=== PATIENT | female | born 1965 | race Caucasian/White ===

== ENCOUNTER 2023-07-14 17:53 | Observation (INO) | payer BC ==
[2023-07-14] MEDS ORDERED: DUONEB 0.5-3 MG/3 ml Neb IH ONE (18:01)
[2023-07-14] MEDS: DUONEB 0.5-3 MG/3 ml Neb IH ONE (18:14)
[2023-07-14] MEDS ORDERED: solu-MEDROL ONE (18:37)
[2023-07-14] MEDS ORDERED: Sodium Chloride 0.9% 1000 ML 1,000 ML ONE (18:37)
[2023-07-14] MEDS ORDERED: Sterile H2O 10 ml IJ ONE (18:37)
[2023-07-14] MEDS: solu-MEDROL 125 MG, Sterile H2O 10 ml 2 ML IV ONE (18:40)
[2023-07-14] MEDS: Sodium Chloride 0.9% 1000 ML 1,000 ML IV STA (18:41)
[2023-07-14 18:45] LABS: Absolute Neutrophil Ct (ANC) 2.49 x10^3/uL (1.4-6.9); BASOPHIL % 1.1 % (0.0-0.4); Basophil (Absolute #) 0.05 x10^3/uL (0-0.4); Eosinophil (Absolute #) 0.09 x10^3/uL (0-0.5); Hematocrit 40.9 % (35-47); Hemoglobin 13.2 g/dL (12.0-16.0); IMMATURE GRAN # 0.02 x10^3u/L (0.00-0.03); IMMATURE GRAN % 0.4 % (0.00-0.4); Lymphocyte (Absolute #) 1.65 x10^3/uL (1.0-4.6); Lymphocytes % 36.8 % (24.0-44.0); Mean Cell Volume 91.1 fL (78-100); Mean Corpuscular Hemoglobin 29.4 pg (26-32); Mean Corpuscular Hgb Concent. 32.3 g/dL (32-36); Mean Platelet Volume 11.7 fL (7.5-11.0); Monocyte (Absolute #) 0.18 x10^3/uL (0.0-1.3); Neutrophil % 55.7 % (36.0-66.0); Platelet Count 179 x10^3/uL (150-450); Red Blood Count 4.49 x10^6/uL (4.1-5.4); Red Cell Distribution Width 13.7 % (11.5-14.0); White Blood Count 4.5 x10^3/uL (4.0-10.5)
[2023-07-14] MEDS ORDERED: PROVENTIL 2.5 MG/3 ML NEB IH ONE (18:45)
[2023-07-14] MEDS: PROVENTIL 2.5 MG/3 ML NEB IH ONE (18:47)
[2023-07-14 18:54] LABS: INFLUENZA A NEGATIVE (NEGATIVE); INFLUENZA B NEGATIVE (NEGATIVE); RESPIRATORY SYNCTIAL VIRUS NEGATIVE (NEGATIVE); SARS-CoV-2 Xpert Express NEGATIVE (NEGATIVE)
--- NOTE | 2023-07-14 18:59 | ERPHSYRPT ---
- History of Present Illness Source: patient Exam Limitations: no limitations Patient Subjective Stated Complaint: asthma attack Triage Nursing Assessment: Pt brought to the ER by her sister in law, hypertensive, tachycardic, tachypnic, hypoxic, pt denies pain, pulses normal, skin n/w/d, had an attack last night and today, walked into the ER and was very short of breath, denies chest pain Hx Tetanus, Diphtheria Vaccination/Date Given: Yes Hx Influenza Vaccination/Date Given: Yes Hx Pneumococcal Vaccination/Date Given: No <GIDEON GAN - Last Filed: 07/14/23 19:03> <BRONWYN NUÑEZ - Last Filed: 07/14/23 23:09> - History of Present Illness Time Seen by Provider: 07/14/23 17:55 Physician History: Patient here with asthma exacerbation. Has been going on and off since April. Multiple rounds of steroids and antibiotics. No falls or trauma. Comes in speaking in 1-3 word sentences. Patient is 90% SpO2 on the monitor on room air. Immediately placed on 4 L of oxygen. No chest pain, falls, other symptoms today. (GIDEON GAN) Allergies/Adverse Reactions: codeine Allergy (Verified 07/14/23 18:15) Home Medications: Escitalopram Oxalate [Lexapro 10 MG] 10 mg PO DAILY 02/26/20 [History] Levothyroxine Sodium 75 Mcg [Synthroid 75 Mcg] 75 mcg PO DAILY 02/26/20 [History] Venlafaxine HCl ER 75 mg [Effexor XR 75 MG] 75 mg PO DAILY 07/14/23 [History] Travel Risk - International Travel Have you traveled outside of the country in past 3 weeks: No - Coronavirus Screening Are you exhibiting any of the following symptoms?: No Close contact with a COVID-19 positive Pt in past 14-21 Days: No - Vaccine Status Have you recieved a Covid-19 vaccination: Yes Janitorial Services Supervisor: Moderna - Vaccination Dates Date of 2cond Vaccination (if applicable): 2020 <GIDEON GAN - Last Filed: 07/14/23 19:03> - Past Medical History Pertinent Past Medical History: Yes Cardiac History: Arrhythmia - Past Surgical History Past Surgical History: Yes Gastrointestinal: Cholecystectomy - Social History Smoking Status: Never smoker Exposure to second hand smoke: No Drug Use: none Patient Lives Alone: No <GIDEON GAN - Last Filed: 07/14/23 19:03> - Physical Exam SpO2 Interpretation: normal SpO2: 94 <GIDEON GAN - Last Filed: 07/14/23 19:03> - Nursing Vital Signs Nursing Vital Signs: Initial Vital Signs Temperature 98.8 F 07/14/23 17:55 Pulse Rate 129 H 07/14/23 17:55 Respiratory Rate 33 H 07/14/23 17:55 Blood Pressure 156/122 07/14/23 17:55 O2 Sat by Pulse Oximetry 85 L 07/14/23 17:55 Pain Scale Pain Intensity 0 - Physical Exam Comments: 07/14/23 19:04 Review of Systems Constitutional: Negative for fever. HENT: Negative for congestion. Respiratory: Wheezing, shortness of breath, appears uncomfortable Cardiovascular: Negative for chest pain. Gastrointestinal: Negative for abdominal pain. Genitourinary: Negative for dysuria. Musculoskeletal: Negative for back pain. Skin: Negative for rash. Neurological: Negative for headaches. Psychiatric/Behavioral: Negative for behavioral problems. All other systems reviewed and are negative. Physical Exam Vitals signs and nursing note reviewed. Constitutional: Appearance: Patient is well-developed. HENT: Head: Normocephalic and atraumatic. Eyes: Conjunctiva/sclera: Conjunctivae normal. Neck: Musculoskeletal: Normal range of motion. Trachea: No tracheal deviation. Cardiovascular: Rate and Rhythm: Normal rate. Pulmonary: Effort: Wheezing, tachypnea, retractions Abdominal: Palpations: Abdomen is soft. Musculoskeletal: General: No deformity. Skin: General: Skin is warm and dry. Neurological/ Psychiatric: Mental Status: Mental status, behavior, interaction with environment is appropriate for patient's age and condition (GIDEON GAN) - Course Nursing assessment & vital signs reviewed: Yes EKG Interpreted by Me: Sinus Rhythm (Normal sinus rhythm no ST changes) <GIDEON GAN - Last Filed: 07/14/23 19:03> Ordered Tests: Active Orders 24 hr Category Date Time Status Concrete Vibrator Operator STAT Care 07/14/23 17:56 Active EKG-ER Only STAT Care 07/14/23 17:55 Active IV Insertion STAT Care 07/14/23 17:55 Active Oxygen-ED Only Nasal Cannula 4 lpm Care 07/14/23 17:55 Active CHEST 1 VIEW (PORTABLE) Stat Exams 07/14/23 17:55 Taken CHEST WITH CONTRAST [CT] Stat Exams 07/14/23 19:09 Taken CBC W DIFF Stat Lab 07/14/23 17:55 Completed CMP Stat Lab 07/14/23 18:40 Completed CULTURE,SPUTUM Stat Lab 07/14/23 17:55 Ordered D-DIMER QUANTITATIVE Stat Lab 07/14/23 18:40 Completed NT PRO BNPII Stat Lab 07/14/23 18:40 Completed TROPONIN Q4H Lab 07/14/23 18:40 Completed TROPONIN Q4H Lab 07/14/23 21:35 Completed TROPONIN Q4H Lab 07/15/23 02:00 Ordered Respiratory Therapy Assessment DAILY RT 07/14/23 18:10 Active Medication Summary Discontinued Medications Generic Name Dose Route Start Last Admin Trade Name Freq PRN Reason Stop Dose Admin Albuterol Sulfate 2.5 mg 07/14/23 18:22 07/14/23 18:47 Albuterol Sulfate 2.5 Mg/3 Ml Neb IH 07/14/23 18:23 2.5 mg STAT ONE Administration Albuterol Sulfate Confirm 07/14/23 18:45 Albuterol Sulfate 2.5 Mg/3 Ml Neb Administered 07/14/23 18:46 Dose 2.5 mg IH .STK-MED ONE Albuterol/Ipratropium 3 ml 07/14/23 17:55 07/14/23 18:14 Ipratropium/Albuterol Sulfate 3 Ml Ampul.Neb IH 07/14/23 17:56 3 ml STAT ONE Administration Albuterol/Ipratropium Confirm 07/14/23 18:01 Ipratropium/Albuterol Sulfate 3 Ml Ampul.Neb Administered 07/14/23 18:02 Dose 3 ml IH .STK-MED ONE Methylprednisolone Sodium 0 mg 07/14/23 17:55 07/14/23 18:40 Succinate 125 mg/ Sterile IV 07/14/23 17:56 125 mg Water 2 ml STAT ONE Administration Furosemide 40 mg 07/14/23 21:10 07/14/23 21:33 Furosemide 40 Mg/4 Ml Vial IV 07/14/23 21:11 40 mg STAT ONE Administration Furosemide Confirm 07/14/23 21:18 Furosemide 40 Mg/4 Ml Vial Administered 07/14/23 21:19 Dose 40 mg .ROUTE .STK-MED ONE Sodium Chloride 1,000 mls @ 999 mls/hr 07/14/23 17:55 07/14/23 19:59 Sodium Chloride 0.9% 1000 Ml IV 07/14/23 18:55 Infused .Q1H1M STA Infusion Sodium Chloride Confirm 07/14/23 18:37 Sodium Chloride 0.9% 1000 Ml Administered 07/14/23 18:38 Dose 1,000 mls @ ud .ROUTE .STK-MED ONE Methylprednisolone Sodium Succinate Confirm 07/14/23 18:37 Methylprednis Sod Succ 125 Mg/2 Ml Vial Administered 07/14/23 18:38 Dose 125 mg .ROUTE .STK-MED ONE Sterile Water Confirm 07/14/23 18:37 Water For Injection,Sterile 10 Ml Vial Administered 07/14/23 18:38 Dose 10 ml IJ .STK-MED ONE Lab/Rad Data: Laboratory Result Diagrams 07/14/23 17:55 07/14/23 18:40 Laboratory Results 07/14/23 07/14/23 07/14/23 Range/Units 21:35 18:40 18:40 WBC (4.0-10.5) x10^3/uL RBC (4.1-5.4) x10^6/uL Hgb (12.0-16.0) g/dL Hct (35-47) % MCV (78-100) fL MCH (26-32) pg MCHC (32-36) g/dL RDW (11.5-14.0) % Plt Count (150-450) x10^3/uL MPV (7.5-11.0) fL Gran % (36.0-66.0) % Immature Gran % (Auto) (0.00-0.4) % Nucleat RBC Rel Count (0.00-0.1) % Eos # (Auto) (0-0.5) x10^3/uL Immature Gran # (Auto) (0.00-0.03) x10^3u/L Absolute Lymphs (auto) (1.0-4.6) x10^3/uL Absolute Monos (auto) (0.0-1.3) x10^3/uL Absolute Nucleated RBC (0.00-0.01) x10^3u/L Lymphocytes % (24.0-44.0) % Monocytes % (0.0-12.0) % Eosinophils % (0.00-5.0) % Basophils % (0.0-0.4) % Absolute Granulocytes (1.4-6.9) x10^3/uL Basophils # (0-0.4) x10^3/uL D-Dimer (0.0-0.50) mg/L Sodium (135-145) mmol/L Potassium (3.5-5.1) mmol/L Chloride (98-107) mmol/L Carbon Dioxide (22-30) mmol/L Anion Gap (5-15) MEQ/L BUN (7-17) mg/dL Creatinine (0.52-1.04) mg/dL Estimated GFR ML/MIN Glucose (74-106) mg/dL Calcium (8.4-10.2) mg/dL Total Bilirubin (0.2-1.3) mg/dL AST (14-36) U/L ALT (0-35) U/L Alkaline Phosphatase (38-126) U/L Troponin I 0.012 0.021 (0.000-0.034) ng/mL NT-Pro-B Natriuret Pep 2010 (<300) pg/mL Serum Total Protein (6.3-8.2) g/dL Albumin (3.5-5.0) g/dL Influenza Type A Ag (NEGATIVE) Influenza Type B Ag (NEGATIVE) RSV (PCR) (NEGATIVE) SARS-CoV-2 (PCR) (NEGATIVE) 07/14/23 07/14/23 07/14/23 Range/Units 18:40 18:40 18:10 WBC (4.0-10.5) x10^3/uL RBC (4.1-5.4) x10^6/uL Hgb (12.0-16.0) g/dL Hct (35-47) % MCV (78-100) fL MCH (26-32) pg MCHC (32-36) g/dL RDW (11.5-14.0) % Plt Count (150-450) x10^3/uL MPV (7.5-11.0) fL Gran % (36.0-66.0) % Immature Gran % (Auto) (0.00-0.4) % Nucleat RBC Rel Count (0.00-0.1) % Eos # (Auto) (0-0.5) x10^3/uL Immature Gran # (Auto) (0.00-0.03) x10^3u/L Absolute Lymphs (auto) (1.0-4.6) x10^3/uL Absolute Monos (auto) (0.0-1.3) x10^3/uL Absolute Nucleated RBC (0.00-0.01) x10^3u/L Lymphocytes % (24.0-44.0) % Monocytes % (0.0-12.0) % Eosinophils % (0.00-5.0) % Basophils % (0.0-0.4) % Absolute Granulocytes (1.4-6.9) x10^3/uL Basophils # (0-0.4) x10^3/uL D-Dimer 1.50 H* (0.0-0.50) mg/L Sodium 141 (135-145) mmol/L Potassium 4.0 (3.5-5.1) mmol/L Chloride 111 H (98-107) mmol/L Carbon Dioxide 21 L (22-30) mmol/L Anion Gap 13.2 (5-15) MEQ/L BUN 17 (7-17) mg/dL Creatinine 1.33 H (0.52-1.04) mg/dL Estimated GFR 47.0 ML/MIN Glucose 109 H (74-106) mg/dL Calcium 8.9 (8.4-10.2) mg/dL Total Bilirubin 0.40 (0.2-1.3) mg/dL AST 45 H (14-36) U/L ALT 75 H (0-35) U/L Alkaline Phosphatase 72 (38-126) U/L Troponin I (0.000-0.034) ng/mL NT-Pro-B Natriuret Pep (<300) pg/mL Serum Total Protein 6.9 (6.3-8.2) g/dL Albumin 4.0 (3.5-5.0) g/dL Influenza Type A Ag NEGATIVE (NEGATIVE) Influenza Type B Ag NEGATIVE (NEGATIVE) RSV (PCR) NEGATIVE (NEGATIVE) SARS-CoV-2 (PCR) NEGATIVE (NEGATIVE) 07/14/23 Range/Units 17:55 WBC 4.5 (4.0-10.5) x10^3/uL RBC 4.49 (4.1-5.4) x10^6/uL Hgb 13.2 (12.0-16.0) g/dL Hct 40.9 (35-47) % MCV 91.1 (78-100) fL MCH 29.4 (26-32) pg MCHC 32.3 (32-36) g/dL RDW 13.7 (11.5-14.0) % Plt Count 179 (150-450) x10^3/uL MPV 11.7 H (7.5-11.0) fL Gran % 55.7 (36.0-66.0) % Immature Gran % (Auto) 0.4 (0.00-0.4) % Nucleat RBC Rel Count 0.0 (0.00-0.1) % Eos # (Auto) 0.09 (0-0.5) x10^3/uL Immature Gran # (Auto) 0.02 (0.00-0.03) x10^3u/L Absolute Lymphs (auto) 1.65 (1.0-4.6) x10^3/uL Absolute Monos (auto) 0.18 (0.0-1.3) x10^3/uL Absolute Nucleated RBC 0.00 (0.00-0.01) x10^3u/L Lymphocytes % 36.8 (24.0-44.0) % Monocytes % 4.0 (0.0-12.0) % Eosinophils % 2.0 (0.00-5.0) % Basophils % 1.1 (0.0-0.4) % Absolute Granulocytes 2.49 (1.4-6.9) x10^3/uL Basophils # 0.05 (0-0.4) x10^3/uL D-Dimer (0.0-0.50) mg/L Sodium (135-145) mmol/L Potassium (3.5-5.1) mmol/L Chloride (98-107) mmol/L Carbon Dioxide (22-30) mmol/L Anion Gap (5-15) MEQ/L BUN (7-17) mg/dL Creatinine (0.52-1.04) mg/dL Estimated GFR ML/MIN Glucose (74-106) mg/dL Calcium (8.4-10.2) mg/dL Total Bilirubin (0.2-1.3) mg/dL AST (14-36) U/L ALT (0-35) U/L Alkaline Phosphatase (38-126) U/L Troponin I (0.000-0.034) ng/mL NT-Pro-B Natriuret Pep (<300) pg/mL Serum Total Protein (6.3-8.2) g/dL Albumin (3.5-5.0) g/dL Influenza Type A Ag (NEGATIVE) Influenza Type B Ag (NEGATIVE) RSV (PCR) (NEGATIVE) SARS-CoV-2 (PCR) (NEGATIVE) - Progress Progress: improved Counseled pt/family regarding: lab results, diagnosis, need for follow-up, rad results <GIDEON GAN - Last Filed: 07/14/23 19:03> <BRONWYN NUÑEZ - Last Filed: 07/14/23 23:09> - Progress Progress Note: 07/14/23 19:04 Parental diagnosis includes pneumonia, other infection, asthma exacerbation, cardiac issue, - We'll obtain basic labs, fluids, EKG, troponin, chest x-ray - EKG shows no ST changes - my read - O2 saturations consistently greater than 95% on 2 L Patient given 2 rounds of albuterol here in the emergency department, patient given steroids, plan for continued close observation. Handoff to Dr. Nuñez at 7 PM. He will follow-up on all labs and imaging. Disposition per his reexam needs imaging. (GIDEON GAN) 07/14/23 21:10 I interpreted this patient's laboratory data results. Patient had an elevated D-dimer and therefore we ordered a CT of the chest with contrast. This study w as interpreted by the radiologist and I reviewed the impression. There is no evidence for pulmonary embolism. However there is new borderline cardiomegaly with pulmonary edema. There is tiny bilateral effusions present. Favoring mild CHF. New small hiatal hernia 07/14/23 22:11 I interpreted the repeat twelve-lead EKG. The repeat heart rate is 117 bpm it is sinus tachycardia. There is a left bundle branch block present. There is no evidence of any acute ischemic changes on the repeat twelve-lead EKG. The patient does not have chest pain. Her repeat troponin level is normal. It is improved from her prior normal troponin level. We will stop the oxygen supplementation and walk the patient to determine what her room air oxygen saturation level is. Patient and spouse were told of the results of the CT scan and the clinical impression. She, if discharged home, will contact her primary care provider and follow-up with the job analysis manager as well. 07/14/23 23:[address] Valdovinos, our telehospitalist on this evening. I reviewed the patient history, chief complaint presenting complaint, findings on examination, results of laboratory and radiographic studies as well as twelve-lead EKG results. The patient continues to be hypoxic and tachycardic even without activity. With activity her heart rate increases and she becomes more hypoxic. We will place her in observation. Dr. Valdovinos agrees to this. He will order more testing for the morning. (BRONWYN NUÑEZ) Medical Desision Making - Independent Historian Additional History obtained from: Spouse - Diagnostic Testing Diagnostic test were ordered, analyzed, and reviewed by me: Yes Radiological Interpretation: Reviewed by me, Teleradiologist Report - Risk of complications The pt has a high risk of morbidity or mortality based on: Decision regarding hospitilization or escalation of hosp level of care <BRONWYN NUÑEZ - Last Filed: 07/14/23 23:09> - Departure Critical Care Time: No <GIDEON GAN - Last Filed: 07/14/23 19:03> - Departure Departure Disposition: Observation Critical Care Time: Yes Critical Care Time(excluding separately billable procedures): Critical 30-74 mins (45 minutes) <BRONWYN NUÑEZ - Last Filed: 07/14/23 23:09> - Departure Clinical Impression: Congestive heart failure, Hypoxia, Tachycardia Condition: Fair Referrals: FRANCOIS LYONS [Primary Care Provider] - Follow up/PCP as directed Instructions: Heart Failure
[2023-07-14 19:00] LABS: ANION GAP 13.2 MEQ/L (5-15); BILIRUBIN,TOTAL 0.4 mg/dL (0.2-1.3); Calcium 8.9 mg/dL (8.4-10.2); Creatinine 1 1.33 mg/dL (0.52-1.04); Total Protein 6.9 g/dL (6.3-8.2)
[2023-07-14] MEDS ORDERED: Lasix 40 MG/4 ML ONE (21:18)
[2023-07-14] MEDS: Lasix 40 MG/4 ML IV ONE (21:33)
--- NOTE | 2023-07-14 23:28 | PCM.HP ---
History of Present Illness - Chief Complaint Chief Complaint: shortness of breath, hyoxia, concern for CHF History of Present Illness: is a 58 year old female who presents with shortness of breath and hypoxic respiratory failure, with clinical picture concerning for new onset CHF vs asthma. Pt denies acute chest pain, recent illness but has had progressive dyspnea at rest and with exertion. Given lasix in the ED with improvement in symptoms but remained hypoxic on room air when walking (88%) - and improved on nasal canula. No prior TTEs. No leg swelling. Has a history of situational asthma. Was given lasix, steroids in the ED and had improvement in her symptoms and back in room air by the time on the floor. - Review of Systems Constitutional: No Fever, No Chills Eyes: No Symptoms Ears, Nose, & Throat: No Symptoms Respiratory: No Cough, No Short Of Breath Cardiac: No Chest Pain, No Edema, No Syncope Abdominal/Gastrointestinal: No Abdominal Pain, No Nausea, No Vomiting, No Diarrhea Genitourinary Symptoms: No Dysuria Musculoskeletal: No Back Pain, No Neck Pain Skin: No Rash Neurological: No Dizziness, No Focal Weakness, No Sensory Changes Psychological: No Symptoms Endocrine: No Symptoms Hematologic/Lymphatic: No Symptoms Immunological/Allergic: No Symptoms Medications & Allergies Home Medications: Home Medication List Escitalopram Oxalate [Lexapro 10 MG] 10 mg PO DAILY 02/26/20 [History Confirmed 07/14/23] Levothyroxine Sodium 75 Mcg [Synthroid 75 Mcg] 75 mcg PO DAILY 02/26/20 [History Confirmed 07/14/23] Venlafaxine HCl ER 75 mg [Effexor XR 75 MG] 75 mg PO DAILY 07/14/23 [History Confirmed 07/14/23] Allergies/Adverse Reactions: Allergies Allergy/AdvReac Type Severity Reaction Status Date / Time codeine Allergy Verified 07/14/23 18:15 - Past Medical History Past Medical History: Yes Cardiac History: Arrhythmia - Past Surgical History Past Surgical History: Yes GI Surgical History: Cholecystectomy - Social History Smoking Status: Never smoker Exposure to second hand smoke: No Alcohol: None Drug Use: none - Physical Exam Vital Signs: Vital Signs - 24 hr Temp Pulse Resp BP BP Pulse Ox 07/14/23 22:39 119 H 16 138/87 95 07/14/23 22:30 124 H 15 118/85 94 L 07/14/23 22:12 115 H 22 123/91 95 07/14/23 22:11 115 H 29 H 96 07/14/23 22:10 117 H 21 95 07/14/23 22:03 126 H 11 L 98 07/14/23 21:30 122 H 21 124/85 97 07/14/23 21:01 126/69 94 L 07/14/23 20:20 119 H 18 94 L 07/14/23 20:02 123 H 24 93 L 07/14/23 19:30 121 H 23 152/96 95 07/14/23 19:06 94 L 07/14/23 19:02 121 H 20 128/104 94 L 07/14/23 18:50 125 H 28 H 94 L 07/14/23 18:30 123 H 22 144/115 94 L 07/14/23 18:10 125 H 23 97 07/14/23 18:00 124 H 26 H 156/122 93 L 07/14/23 17:55 98.8 F 129 H 30 H 156/122 95 General Appearance: no apparent distress, alert Neurologic Exam: alert, oriented x 3, cooperative, normal mood/affect, nml cerebellar function, nml station & gait, sensation nml, No motor deficits Eye Exam: PERRL/EOMI, eyes nml inspection Ears, Nose, Throat Exam: normal ENT inspection, TMs normal, pharynx normal, moist mucous membranes Neck Exam: normal inspection, non-tender, supple, full range of motion Respiratory Exam: normal breath sounds, lungs clear, No respiratory distress Cardiovascular Exam: regular rate/rhythm, normal heart sounds, normal peripheral pulses Gastrointestinal/Abdomen Exam: soft, normal bowel sounds, No tenderness, No mass Back Exam: normal inspection, normal range of motion, No CVA tenderness, No vertebral tenderness Extremity Exam: normal inspection, normal range of motion, pelvis stable Skin Exam: normal color, warm, dry, No rash Lymphatic Exam: No adenopathy Results - Labs Lab/Micro Results: Lab Results-Last 24 Hours 07/14/23 07/14/23 07/14/23 Range/Units 17:55 18:10 18:40 WBC 4.5 (4.0-10.5) x10^3/uL RBC 4.49 (4.1-5.4) x10^6/uL Hgb 13.2 (12.0-16.0) g/dL Hct 40.9 (35-47) % MCV 91.1 (78-100) fL MCH 29.4 (26-32) pg MCHC 32.3 (32-36) g/dL RDW 13.7 (11.5-14.0) % Plt Count 179 (150-450) x10^3/uL MPV 11.7 H (7.5-11.0) fL Gran % 55.7 (36.0-66.0) % Immature Gran % (Auto) 0.4 (0.00-0.4) % Nucleat RBC Rel Count 0.0 (0.00-0.1) % Eos # (Auto) 0.09 (0-0.5) x10^3/uL Immature Gran # (Auto) 0.02 (0.00-0.03) x10^3u/L Absolute Lymphs (auto) 1.65 (1.0-4.6) x10^3/uL Absolute Monos (auto) 0.18 (0.0-1.3) x10^3/uL Absolute Nucleated RBC 0.00 (0.00-0.01) x10^3u/L Lymphocytes % 36.8 (24.0-44.0) % Monocytes % 4.0 (0.0-12.0) % Eosinophils % 2.0 (0.00-5.0) % Basophils % 1.1 (0.0-0.4) % Absolute Granulocytes 2.49 (1.4-6.9) x10^3/uL Basophils # 0.05 (0-0.4) x10^3/uL D-Dimer (0.0-0.50) mg/L Sodium 141 (135-145) mmol/L Potassium 4.0 (3.5-5.1) mmol/L Chloride 111 H (98-107) mmol/L Carbon Dioxide 21 L (22-30) mmol/L Anion Gap 13.2 (5-15) MEQ/L BUN 17 (7-17) mg/dL Creatinine 1.33 H (0.52-1.04) mg/dL Estimated GFR 47.0 ML/MIN Glucose 109 H (74-106) mg/dL Calcium 8.9 (8.4-10.2) mg/dL Total Bilirubin 0.40 (0.2-1.3) mg/dL AST 45 H (14-36) U/L ALT 75 H (0-35) U/L Alkaline Phosphatase 72 (38-126) U/L Troponin I (0.000-0.034) ng/mL NT-Pro-B Natriuret Pep (<300) pg/mL Serum Total Protein 6.9 (6.3-8.2) g/dL Albumin 4.0 (3.5-5.0) g/dL Influenza Type A Ag NEGATIVE (NEGATIVE) Influenza Type B Ag NEGATIVE (NEGATIVE) RSV (PCR) NEGATIVE (NEGATIVE) SARS-CoV-2 (PCR) NEGATIVE (NEGATIVE) 07/14/23 07/14/23 07/14/23 Range/Units 18:40 18:40 18:40 WBC (4.0-10.5) x10^3/uL RBC (4.1-5.4) x10^6/uL Hgb (12.0-16.0) g/dL Hct (35-47) % MCV (78-100) fL MCH (26-32) pg MCHC (32-36) g/dL RDW (11.5-14.0) % Plt Count (150-450) x10^3/uL MPV (7.5-11.0) fL Gran % (36.0-66.0) % Immature Gran % (Auto) (0.00-0.4) % Nucleat RBC Rel Count (0.00-0.1) % Eos # (Auto) (0-0.5) x10^3/uL Immature Gran # (Auto) (0.00-0.03) x10^3u/L Absolute Lymphs (auto) (1.0-4.6) x10^3/uL Absolute Monos (auto) (0.0-1.3) x10^3/uL Absolute Nucleated RBC (0.00-0.01) x10^3u/L Lymphocytes % (24.0-44.0) % Monocytes % (0.0-12.0) % Eosinophils % (0.00-5.0) % Basophils % (0.0-0.4) % Absolute Granulocytes (1.4-6.9) x10^3/uL Basophils # (0-0.4) x10^3/uL D-Dimer 1.50 H* (0.0-0.50) mg/L Sodium (135-145) mmol/L Potassium (3.5-5.1) mmol/L Chloride (98-107) mmol/L Carbon Dioxide (22-30) mmol/L Anion Gap (5-15) MEQ/L BUN (7-17) mg/dL Creatinine (0.52-1.04) mg/dL Estimated GFR ML/MIN Glucose (74-106) mg/dL Calcium (8.4-10.2) mg/dL Total Bilirubin (0.2-1.3) mg/dL AST (14-36) U/L ALT (0-35) U/L Alkaline Phosphatase (38-126) U/L Troponin I 0.021 (0.000-0.034) ng/mL NT-Pro-B Natriuret Pep 2010 (<300) pg/mL Serum Total Protein (6.3-8.2) g/dL Albumin (3.5-5.0) g/dL Influenza Type A Ag (NEGATIVE) Influenza Type B Ag (NEGATIVE) RSV (PCR) (NEGATIVE) SARS-CoV-2 (PCR) (NEGATIVE) 07/14/23 Range/Units 21:35 WBC (4.0-10.5) x10^3/uL RBC (4.1-5.4) x10^6/uL Hgb (12.0-16.0) g/dL Hct (35-47) % MCV (78-100) fL MCH (26-32) pg MCHC (32-36) g/dL RDW (11.5-14.0) % Plt Count (150-450) x10^3/uL MPV (7.5-11.0) fL Gran % (36.0-66.0) % Immature Gran % (Auto) (0.00-0.4) % Nucleat RBC Rel Count (0.00-0.1) % Eos # (Auto) (0-0.5) x10^3/uL Immature Gran # (Auto) (0.00-0.03) x10^3u/L Absolute Lymphs (auto) (1.0-4.6) x10^3/uL Absolute Monos (auto) (0.0-1.3) x10^3/uL Absolute Nucleated RBC (0.00-0.01) x10^3u/L Lymphocytes % (24.0-44.0) % Monocytes % (0.0-12.0) % Eosinophils % (0.00-5.0) % Basophils % (0.0-0.4) % Absolute Granulocytes (1.4-6.9) x10^3/uL Basophils # (0-0.4) x10^3/uL D-Dimer (0.0-0.50) mg/L Sodium (135-145) mmol/L Potassium (3.5-5.1) mmol/L Chloride (98-107) mmol/L Carbon Dioxide (22-30) mmol/L Anion Gap (5-15) MEQ/L BUN (7-17) mg/dL Creatinine (0.52-1.04) mg/dL Estimated GFR ML/MIN Glucose (74-106) mg/dL Calcium (8.4-10.2) mg/dL Total Bilirubin (0.2-1.3) mg/dL AST (14-36) U/L ALT (0-35) U/L Alkaline Phosphatase (38-126) U/L Troponin I 0.012 (0.000-0.034) ng/mL NT-Pro-B Natriuret Pep (<300) pg/mL Serum Total Protein (6.3-8.2) g/dL Albumin (3.5-5.0) g/dL Influenza Type A Ag (NEGATIVE) Influenza Type B Ag (NEGATIVE) RSV (PCR) (NEGATIVE) SARS-CoV-2 (PCR) (NEGATIVE) - Radiology Impressions Radiology Exams & Impressions: Radiology Procedures Category Date Time Status CHEST 1 VIEW (PORTABLE) Stat Exams 07/14/23 17:55 Taken CHEST WITH CONTRAST [CT] Stat Exams 07/14/23 19:09 Taken - Other Procedures and Tests Respiratory Therapy 07/14/23 18:10 Respiratory Therapy Assessment DAILY Assessment/Plan (1) Hypoxia Current Visit: Yes Status: Acute Assessment & Plan: Could be related to asthma vs new onset CHF 1. Obtain TTE 2. Improved symptoms with lasix, steroids. Hold for now, resume lasix in the AM if needed. Code(s): R09.02 - HYPOXEMIA Telemedicine Encounter - Telemedicine Encounter Telemedicine Encounter: The entirety of this encounter was performed via Telemedicine"
[2023-07-15] MEDS ORDERED: Zofran 4 MG/2 ML VIAL IV PRN
[2023-07-15] MEDS: Sodium Chloride 0.9% 1000 ML 1,000 ML IV SCH (01:38)
[2023-07-15] MEDS: PROVENTIL 2.5 MG/3 ML NEB IH PRN (02:17)
[2023-07-15 04:56] LABS: Absolute Neutrophil Ct (ANC) 4.54 x10^3/uL (1.4-6.9); Basophil (Absolute #) 0 x10^3/uL (0-0.4); Eosinophil (Absolute #) 0 x10^3/uL (0-0.5); Hematocrit 37.6 % (35-47); Hemoglobin 12.3 g/dL (12.0-16.0); IMMATURE GRAN # 0.02 x10^3u/L (0.00-0.03); IMMATURE GRAN % 0.4 % (0.00-0.4); Lymphocyte (Absolute #) 0.36 x10^3/uL (1.0-4.6); Lymphocytes % 7.2 % (24.0-44.0); Mean Cell Volume 89.3 fL (78-100); Mean Corpuscular Hemoglobin 29.2 pg (26-32); Mean Corpuscular Hgb Concent. 32.7 g/dL (32-36); Mean Platelet Volume 12.1 fL (7.5-11.0); Monocyte (Absolute #) 0.07 x10^3/uL (0.0-1.3); Monocytes % 1.4 % (0.0-12.0); Platelet Count 177 x10^3/uL (150-450); Red Blood Count 4.21 x10^6/uL (4.1-5.4); Red Cell Distribution Width 13.7 % (11.5-14.0)
--- NOTE | 2023-07-15 05:17 | PCM.NOTE ---
Date and Time: 07/15/23 0510 Subjective Assessment: is a 58 year old female who presented to ED 07/14/23 with shortness of breath and hypoxic respiratory failure, with clinical picture concerning for new onset CHF vs asthma. Pt denies acute chest pain, recent illness but has had progressive dyspnea at rest and with exertion. Given lasix in the ED with improvement in symptoms but remained hypoxic on room air when walking (88%) - and improved on nasal canula. No prior TTEs. No leg swelling. CT chest with no evidence for pulmonary embolism. However there is new borderline cardiomegaly with pulmonary edema. There is tiny bilateral effusions present. Favoring mild CHF. New small hiatal hernia. 07/15/23: Met with patient bedside.Endorses shortness of breath is improved, now on RA. Patient euvolemic. Discussed case with Dr. Joe Cole (patient's counseling specialist) patient does have h/o pvc's for which she is asymptomatic and doesn't require tr eatment. Plan is to continue lasix and obtain echo. Will re-eval once results are finalized. Patient to follow up with [facility] as OP in two weeks following discharge. <KIERA JONES - Last Filed: 07/15/23 11:23> Date and Time: 07/15/232237 <DHRUV TIMMONS - Last Filed: 07/15/23 22:39> - Review of Systems Constitutional: No Symptoms Eyes: No Symptoms Ears, Nose, & Throat: No Symptoms Respiratory: No Symptoms Cardiac: No Symptoms Abdominal/Gastrointestinal: No Symptoms Genitourinary Symptoms: No Symptoms Musculoskeletal: No Symptoms Skin: No Symptoms Neurological: No Symptoms Psychological: No Symptoms Endocrine: No Symptoms Hematologic/Lymphatic: No Symptoms Immunological/Allergic: No Symptoms <KIERA JONES - Last Filed: 07/15/23 11:23> Objective Exam General Appearance: no apparent distress Neurologic Exam: alert, oriented x 3, cooperative Skin Exam: normal color Eye Exam: PERRL Ears, Nose, Throat Exam: normal ENT inspection Neck Exam: normal inspection Respiratory Exam: normal breath sounds, lungs clear Cardiovascular Exam: regular rate/rhythm, normal heart sounds Gastrointestinal/Abdomen Exam: soft, normal bowel sounds Extremity Exam: normal inspection Back Exam: normal inspection Pelvic Exam: deferred Rectal Exam: deferred <KIERA JONES - Last Filed: 07/15/23 11:23> Objective Data Vital Signs: Vital Signs - 24 hr Temp Pulse Resp BP BP Pulse Ox 07/15/23 02:18 108 H 22 94 L 07/15/23 01:01 114 H 20 96 07/15/23 00:25 98.0 F 119 H 22 117/59 95 07/15/23 00:00 95 07/14/23 23:00 114 H 20 122/87 97 07/14/23 22:39 119 H 16 138/87 95 07/14/23 22:30 124 H 15 118/85 94 L 07/14/23 22:12 115 H 22 123/91 95 07/14/23 22:11 115 H 29 H 96 07/14/23 22:10 117 H 21 95 07/14/23 22:03 126 H 11 L 98 07/14/23 21:30 122 H 21 124/85 97 07/14/23 21:01 126/69 94 L 07/14/23 20:20 119 H 18 94 L 07/14/23 20:02 123 H 24 93 L 07/14/23 19:30 121 H 23 152/96 95 07/14/23 19:06 94 L 07/14/23 19:02 121 H 20 128/104 94 L 07/14/23 18:50 125 H 28 H 94 L 07/14/23 18:30 123 H 22 144/115 94 L 07/14/23 18:10 125 H 23 97 07/14/23 18:00 124 H 26 H 156/122 93 L 07/14/23 17:55 98.8 F 129 H 30 H 156/122 95 Pain Assessment - Last Documented Pain Intensity 0 Intake and Output: Intake & Output 07/12/23 07/13/23 07/14/23 07/15/23 11:59 11:59 11:59 11:59 Output Total 400 Balance -400 Weight 78.9 kg Lab Results: Lab Results-Last 24 Hours 07/14/23 07/14/23 07/14/23 Range/Units 17:55 18:10 18:40 WBC 4.5 (4.0-10.5) x10^3/uL RBC 4.49 (4.1-5.4) x10^6/uL Hgb 13.2 (12.0-16.0) g/dL Hct 40.9 (35-47) % MCV 91.1 (78-100) fL MCH 29.4 (26-32) pg MCHC 32.3 (32-36) g/dL RDW 13.7 (11.5-14.0) % Plt Count 179 (150-450) x10^3/uL MPV 11.7 H (7.5-11.0) fL Gran % 55.7 (36.0-66.0) % Immature Gran % (Auto) 0.4 (0.00-0.4) % Nucleat RBC Rel Count 0.0 (0.00-0.1) % Eos # (Auto) 0.09 (0-0.5) x10^3/uL Immature Gran # (Auto) 0.02 (0.00-0.03) x10^3u/L Absolute Lymphs (auto) 1.65 (1.0-4.6) x10^3/uL Absolute Monos (auto) 0.18 (0.0-1.3) x10^3/uL Absolute Nucleated RBC 0.00 (0.00-0.01) x10^3u/L Lymphocytes % 36.8 (24.0-44.0) % Monocytes % 4.0 (0.0-12.0) % Eosinophils % 2.0 (0.00-5.0) % Basophils % 1.1 (0.0-0.4) % Absolute Granulocytes 2.49 (1.4-6.9) x10^3/uL Basophils # 0.05 (0-0.4) x10^3/uL D-Dimer (0.0-0.50) mg/L Sodium 141 (135-145) mmol/L Potassium 4.0 (3.5-5.1) mmol/L Chloride 111 H (98-107) mmol/L Carbon Dioxide 21 L (22-30) mmol/L Anion Gap 13.2 (5-15) MEQ/L BUN 17 (7-17) mg/dL Creatinine 1.33 H (0.52-1.04) mg/dL Estimated GFR 47.0 ML/MIN Glucose 109 H (74-106) mg/dL Calcium 8.9 (8.4-10.2) mg/dL Total Bilirubin 0.40 (0.2-1.3) mg/dL AST 45 H (14-36) U/L ALT 75 H (0-35) U/L Alkaline Phosphatase 72 (38-126) U/L Troponin I (0.000-0.034) ng/mL NT-Pro-B Natriuret Pep (<300) pg/mL Serum Total Protein 6.9 (6.3-8.2) g/dL Albumin 4.0 (3.5-5.0) g/dL Free T4 (0.78-2.19) ng/dL TSH 3rd Generation (0.47-4.68) mIU/L Influenza Type A Ag NEGATIVE (NEGATIVE) Influenza Type B Ag NEGATIVE (NEGATIVE) RSV (PCR) NEGATIVE (NEGATIVE) SARS-CoV-2 (PCR) NEGATIVE (NEGATIVE) 07/14/23 07/14/23 07/14/23 Range/Units 18:40 18:40 18:40 WBC (4.0-10.5) x10^3/uL RBC (4.1-5.4) x10^6/uL Hgb (12.0-16.0) g/dL Hct (35-47) % MCV (78-100) fL MCH (26-32) pg MCHC (32-36) g/dL RDW (11.5-14.0) % Plt Count (150-450) x10^3/uL MPV (7.5-11.0) fL Gran % (36.0-66.0) % Immature Gran % (Auto) (0.00-0.4) % Nucleat RBC Rel Count (0.00-0.1) % Eos # (Auto) (0-0.5) x10^3/uL Immature Gran # (Auto) (0.00-0.03) x10^3u/L Absolute Lymphs (auto) (1.0-4.6) x10^3/uL Absolute Monos (auto) (0.0-1.3) x10^3/uL Absolute Nucleated RBC (0.00-0.01) x10^3u/L Lymphocytes % (24.0-44.0) % Monocytes % (0.0-12.0) % Eosinophils % (0.00-5.0) % Basophils % (0.0-0.4) % Absolute Granulocytes (1.4-6.9) x10^3/uL Basophils # (0-0.4) x10^3/uL D-Dimer 1.50 H* (0.0-0.50) mg/L Sodium (135-145) mmol/L Potassium (3.5-5.1) mmol/L Chloride (98-107) mmol/L Carbon Dioxide (22-30) mmol/L Anion Gap (5-15) MEQ/L BUN (7-17) mg/dL Creatinine (0.52-1.04) mg/dL Estimated GFR ML/MIN Glucose (74-106) mg/dL Calcium (8.4-10.2) mg/dL Total Bilirubin (0.2-1.3) mg/dL AST (14-36) U/L ALT (0-35) U/L Alkaline Phosphatase (38-126) U/L Troponin I 0.021 (0.000-0.034) ng/mL NT-Pro-B Natriuret Pep 2010 (<300) pg/mL Serum Total Protein (6.3-8.2) g/dL Albumin (3.5-5.0) g/dL Free T4 (0.78-2.19) ng/dL TSH 3rd Generation (0.47-4.68) mIU/L Influenza Type A Ag (NEGATIVE) Influenza Type B Ag (NEGATIVE) RSV (PCR) (NEGATIVE) SARS-CoV-2 (PCR) (NEGATIVE) 07/14/23 07/14/23 07/14/23 Range/Units 18:40 18:40 21:35 WBC (4.0-10.5) x10^3/uL RBC (4.1-5.4) x10^6/uL Hgb (12.0-16.0) g/dL Hct (35-47) % MCV (78-100) fL MCH (26-32) pg MCHC (32-36) g/dL RDW (11.5-14.0) % Plt Count (150-450) x10^3/uL MPV (7.5-11.0) fL Gran % (36.0-66.0) % Immature Gran % (Auto) (0.00-0.4) % Nucleat RBC Rel Count (0.00-0.1) % Eos # (Auto) (0-0.5) x10^3/uL Immature Gran # (Auto) (0.00-0.03) x10^3u/L Absolute Lymphs (auto) (1.0-4.6) x10^3/uL Absolute Monos (auto) (0.0-1.3) x10^3/uL Absolute Nucleated RBC (0.00-0.01) x10^3u/L Lymphocytes % (24.0-44.0) % Monocytes % (0.0-12.0) % Eosinophils % (0.00-5.0) % Basophils % (0.0-0.4) % Absolute Granulocytes (1.4-6.9) x10^3/uL Basophils # (0-0.4) x10^3/uL D-Dimer (0.0-0.50) mg/L Sodium (135-145) mmol/L Potassium (3.5-5.1) mmol/L Chloride (98-107) mmol/L Carbon Dioxide (22-30) mmol/L Anion Gap (5-15) MEQ/L BUN (7-17) mg/dL Creatinine (0.52-1.04) mg/dL Estimated GFR ML/MIN Glucose (74-106) mg/dL Calcium (8.4-10.2) mg/dL Total Bilirubin (0.2-1.3) mg/dL AST (14-36) U/L ALT (0-35) U/L Alkaline Phosphatase (38-126) U/L Troponin I 0.012 (0.000-0.034) ng/mL NT-Pro-B Natriuret Pep (<300) pg/mL Serum Total Protein (6.3-8.2) g/dL Albumin (3.5-5.0) g/dL Free T4 1.50 (0.78-2.19) ng/dL TSH 3rd Generation 0.214 L (0.47-4.68) mIU/L Influenza Type A Ag (NEGATIVE) Influenza Type B Ag (NEGATIVE) RSV (PCR) (NEGATIVE) SARS-CoV-2 (PCR) (NEGATIVE) 07/15/23 Range/Units 04:42 WBC 5.0 (4.0-10.5) x10^3/uL RBC 4.21 (4.1-5.4) x10^6/uL Hgb 12.3 (12.0-16.0) g/dL Hct 37.6 (35-47) % MCV 89.3 (78-100) fL MCH 29.2 (26-32) pg MCHC 32.7 (32-36) g/dL RDW 13.7 (11.5-14.0) % Plt Count 177 (150-450) x10^3/uL MPV 12.1 H (7.5-11.0) fL Gran % 91.0 H (36.0-66.0) % Immature Gran % (Auto) 0.4 (0.00-0.4) % Nucleat RBC Rel Count 0.0 (0.00-0.1) % Eos # (Auto) 0 (0-0.5) x10^3/uL Immature Gran # (Auto) 0.02 (0.00-0.03) x10^3u/L Absolute Lymphs (auto) 0.36 L (1.0-4.6) x10^3/uL Absolute Monos (auto) 0.07 (0.0-1.3) x10^3/uL Absolute Nucleated RBC 0.00 (0.00-0.01) x10^3u/L Lymphocytes % 7.2 L (24.0-44.0) % Monocytes % 1.4 (0.0-12.0) % Eosinophils % 0.0 (0.00-5.0) % Basophils % 0.0 (0.0-0.4) % Absolute Granulocytes 4.54 (1.4-6.9) x10^3/uL Basophils # 0 (0-0.4) x10^3/uL D-Dimer (0.0-0.50) mg/L Sodium (135-145) mmol/L Potassium (3.5-5.1) mmol/L Chloride (98-107) mmol/L Carbon Dioxide (22-30) mmol/L Anion Gap (5-15) MEQ/L BUN (7-17) mg/dL Creatinine (0.52-1.04) mg/dL Estimated GFR ML/MIN Glucose (74-106) mg/dL Calcium (8.4-10.2) mg/dL Total Bilirubin (0.2-1.3) mg/dL AST (14-36) U/L ALT (0-35) U/L Alkaline Phosphatase (38-126) U/L Troponin I (0.000-0.034) ng/mL NT-Pro-B Natriuret Pep (<300) pg/mL Serum Total Protein (6.3-8.2) g/dL Albumin (3.5-5.0) g/dL Free T4 (0.78-2.19) ng/dL TSH 3rd Generation (0.47-4.68) mIU/L Influenza Type A Ag (NEGATIVE) Influenza Type B Ag (NEGATIVE) RSV (PCR) (NEGATIVE) SARS-CoV-2 (PCR) (NEGATIVE) Radiology Exams: Radiology Procedures Category Date Time Status CHEST 1 VIEW (PORTABLE) Stat Exams 07/14/23 17:55 Taken CHEST WITH CONTRAST [CT] Stat Exams 07/14/23 19:09 Taken ECHO W/2D AND DOPPLER [US] Stat Exams 07/15/23 00:00 Ordered <KIERA JONES - Last Filed: 07/15/23 11:23> Vital Signs: Vital Signs - 24 hr Temp Pulse Resp BP BP Pulse Ox 07/15/23 19:52 98.2 F 111 H 17 107/76 95 07/15/23 19:02 116 H 20 95 07/15/23 15:44 98.1 F 112 H 16 106/67 91 L 07/15/23 11:30 98.0 F 112 H 16 109/69 92 L 07/15/23 07:24 105 H 16 95 07/15/23 07:13 98.0 F 104 H 16 99/52 100 07/15/23 04:00 97.3 F 113 H 16 113/55 94 L 07/15/23 02:18 108 H 22 94 L 07/15/23 01:01 114 H 20 96 07/15/23 00:25 98.0 F 119 H 22 117/59 95 07/15/23 00:00 95 07/14/23 23:00 114 H 20 122/87 97 07/14/23 22:39 119 H 16 138/87 95 Pain Assessment - Last Documented Pain Intensity 5 Pain Scale Used 0-10 Pain Scale Intake and Output: Intake & Output 07/13/23 07/14/23 07/15/23 07/16/23 11:59 11:59 11:59 11:59 Intake Total 480 1180 Output Total 400 3550 Balance 80 -2370 Weight 78.9 kg Lab Results: Lab Results-Last 24 Hours 07/14/23 07/14/23 07/15/23 Range/Units 18:40 18:40 04:42 WBC 5.0 (4.0-10.5) x10^3/uL RBC 4.21 (4.1-5.4) x10^6/uL Hgb 12.3 (12.0-16.0) g/dL Hct 37.6 (35-47) % MCV 89.3 (78-100) fL MCH 29.2 (26-32) pg MCHC 32.7 (32-36) g/dL RDW 13.7 (11.5-14.0) % Plt Count 177 (150-450) x10^3/uL MPV 12.1 H (7.5-11.0) fL Gran % 91.0 H (36.0-66.0) % Immature Gran % (Auto) 0.4 (0.00-0.4) % Nucleat RBC Rel Count 0.0 (0.00-0.1) % Eos # (Auto) 0 (0-0.5) x10^3/uL Immature Gran # (Auto) 0.02 (0.00-0.03) x10^3u/L Absolute Lymphs (auto) 0.36 L (1.0-4.6) x10^3/uL Absolute Monos (auto) 0.07 (0.0-1.3) x10^3/uL Absolute Nucleated RBC 0.00 (0.00-0.01) x10^3u/L Lymphocytes % 7.2 L (24.0-44.0) % Monocytes % 1.4 (0.0-12.0) % Eosinophils % 0.0 (0.00-5.0) % Basophils % 0.0 (0.0-0.4) % Absolute Granulocytes 4.54 (1.4-6.9) x10^3/uL Basophils # 0 (0-0.4) x10^3/uL Sodium (135-145) mmol/L Potassium (3.5-5.1) mmol/L Chloride (98-107) mmol/L Carbon Dioxide (22-30) mmol/L Anion Gap (5-15) MEQ/L BUN (7-17) mg/dL Creatinine (0.52-1.04) mg/dL Estimated GFR ML/MIN Glucose (74-106) mg/dL Hemoglobin A1c (4.5-6.0) % Calcium (8.4-10.2) mg/dL Magnesium (1.6-2.3) mg/dL Total Bilirubin (0.2-1.3) mg/dL AST (14-36) U/L ALT (0-35) U/L Alkaline Phosphatase (38-126) U/L NT-Pro-B Natriuret Pep (<300) pg/mL Serum Total Protein (6.3-8.2) g/dL Albumin (3.5-5.0) g/dL Free T4 1.50 (0.78-2.19) ng/dL TSH 3rd Generation 0.214 L (0.47-4.68) mIU/L Slides for Path Review YES 07/15/23 07/15/23 07/15/23 Range/Units 04:42 04:42 04:42 WBC (4.0-10.5) x10^3/uL RBC (4.1-5.4) x10^6/uL Hgb (12.0-16.0) g/dL Hct (35-47) % MCV (78-100) fL MCH (26-32) pg MCHC (32-36) g/dL RDW (11.5-14.0) % Plt Count (150-450) x10^3/uL MPV (7.5-11.0) fL Gran % (36.0-66.0) % Immature Gran % (Auto) (0.00-0.4) % Nucleat RBC Rel Count (0.00-0.1) % Eos # (Auto) (0-0.5) x10^3/uL Immature Gran # (Auto) (0.00-0.03) x10^3u/L Absolute Lymphs (auto) (1.0-4.6) x10^3/uL Absolute Monos (auto) (0.0-1.3) x10^3/uL Absolute Nucleated RBC (0.00-0.01) x10^3u/L Lymphocytes % (24.0-44.0) % Monocytes % (0.0-12.0) % Eosinophils % (0.00-5.0) % Basophils % (0.0-0.4) % Absolute Granulocytes (1.4-6.9) x10^3/uL Basophils # (0-0.4) x10^3/uL Sodium 142 (135-145) mmol/L Potassium 3.7 (3.5-5.1) mmol/L Chloride 110 H (98-107) mmol/L Carbon Dioxide 21 L (22-30) mmol/L Anion Gap 15.4 H (5-15) MEQ/L BUN 17 (7-17) mg/dL Creatinine 1.16 H (0.52-1.04) mg/dL Estimated GFR 55.3 ML/MIN Glucose 210 H (74-106) mg/dL Hemoglobin A1c 5.46 (4.5-6.0) % Calcium 9.2 (8.4-10.2) mg/dL Magnesium 2.0 (1.6-2.3) mg/dL Total Bilirubin 0.20 (0.2-1.3) mg/dL AST 36 (14-36) U/L ALT 68 H (0-35) U/L Alkaline Phosphatase 63 (38-126) U/L NT-Pro-B Natriuret Pep 3440 (<300) pg/mL Serum Total Protein 6.6 (6.3-8.2) g/dL Albumin 3.8 (3.5-5.0) g/dL Free T4 (0.78-2.19) ng/dL TSH 3rd Generation (0.47-4.68) mIU/L Slides for Path Review Radiology Exams: Radiology Procedures Category Date Time Status CHEST 1 VIEW (PORTABLE) Stat Exams 07/14/23 17:55 Completed CHEST WITH CONTRAST [CT] Stat Exams 07/14/23 19:09 Completed ECHO W/2D AND DOPPLER [US] Stat Exams 07/15/23 00:00 Taken <DHRUV TIMMONS - Last Filed: 07/15/23 22:39> Assessment/Plan (1) Congestive heart failure Current Visit: Yes Status: Acute Assessment & Plan: -New onset, Discussed case with patient's counseling specialist Dr. Joe Cole, plan for echo today and diuresis, will re-evaluate once results are finalized -CT chest showing no evidence for pulmonary embolism. However there is new borderline cardiomegaly with pulmonary edema There is tiny bilateral effusions present. Favoring mild CHF. New small hiatal hernia -Most recent echo 11/26/18 Findings: 1) Mildly reduced left ventricular systolic function with ejection fraction 45 to 50%. 2) Mild left ventricular hypertrophy. 3) Normal right ventricular systolic size and systolic function. 4) Borderline mitral valve prolapse with mild central mitral regurgitation. 5) Mild tricuspid regurgitation with right ventricular systolic pressure of 30 mm of Mercury. 6) Trace pulmonic regurgitation. 7) No pericardial effusion. -trops WNL -Optimize electrolytes with goal k>4, Mg>2 -BNP at 3440 -Echo pending -Supplemental oxygen with goal >92% -Lasix 40mg bid -Elevated HOB 30-45 degrees -Dry weight with daily weights -Tele -Strict I&O Code(s): I50.9 - HEART FAILURE, UNSPECIFIED (2) CROW (acute kidney injury) Current Visit: Yes Status: Acute Assessment & Plan: -creat baseline around 0.82, at 1.33 on admission, improving at 1.16 -Med list reviewed for offending agents -Avoid BEREKET/ARBS/NSAIDs Code(s): N17.9 - ACUTE KIDNEY FAILURE, UNSPECIFIED (3) Hypoxia Current Visit: Yes Status: Acute Assessment & Plan: -Most likely secondary to new onset CHF -now at RA VTE: lovenox Dispo: 1-2 days Full code Code(s): R09.02 - HYPOXEMIA (4) Hypothyroid Current Visit: Yes Status: Acute Assessment & Plan: -TSH level elevated, will reduce dose of synthroid to 50mcg, advised recheck with PCP Code(s): E03.9 - HYPOTHYROIDISM, UNSPECIFIED <KIERA JONES - Last Filed: 07/15/23 11:23> NIDA Encounter - NIDA Encounter Attestation NIDA Encounter Attestation: "IhavepersonallyseenandexaminedEDSINAN GUZMAN andhavediscussed pertinent aspects of their care with Kiera Valencia agree with the history, physical exam (any modifications based on my personal exam will be noted below), assessment, and plan as outlined in original note. Please see immediately below for my summary of findings and additional assessment and plan along with any meaningful corrections/explanations to the Subjective/Objective portions of the NIDA note will be noted." My portion of the encounter took place via telemedicine. -New onset CHF. Patient reports improvement in breathing since initiation of diuresis. Echo pending. Continue lasix. <DHRUV TIMMONS - Last Filed: 07/15/23 22:39>
[2023-07-15 05:32] LABS: ALBUMIN 3.8 g/dL (3.5-5.0); ANION GAP 15.4 MEQ/L (5-15); BILIRUBIN,TOTAL 0.2 mg/dL (0.2-1.3); Calcium 9.2 mg/dL (8.4-10.2); Creatinine 1 1.16 mg/dL (0.52-1.04); EST GLOMERULAR FILTRATION RATE 55.3 ML/MIN; Potassium 3.7 mmol/L (3.5-5.1); Total Protein 6.6 g/dL (6.3-8.2)
[2023-07-15 05:41] LABS: Slide Review 1 YES
--- NOTE | 2023-07-15 08:43 | XRAY ---
Indication: Cough. Short of breath. Pneumonia. Comparison: None Portable chest demonstrates borderline cardiomegaly and mild pulmonary edema. No focal infiltrate, consolidation, or large effusion. Bony thorax intact.
--- NOTE | 2023-07-15 08:47 | XRAY ---
Indication: Short of breath. Elevated d-dimer. Multiple contiguous axial images obtained through the chest using 80 cc Isovue 370 contrast and PE protocol. Comparison: February 26, 2020 Good opacification of the pulmonary arteries to include the lobar and segmental branches. No pulmonary embolus. Heart is now borderline enlarged. Aorta remains normal in course and caliber. Again small subcarinal, tiny right hilar, and tiny distal paraesophageal calcified nodes. No pathologic mediastinal/hilar lymphadenopathy. New small hiatal hernia. Lungs demonstrates new diffuse pulmonary edema and tiny bilateral effusions, right greater than left. Minimal bibasilar dependent atelectasis. No suspicious pulmonary mass/nodule, infiltrate, or pneumothorax. Bony thorax intact. Limited upper abdomen demonstrates mild diffuse fatty liver and cholecystectomy clips. Impression: 1. Continued negative for pulmonary embolus. 2. New borderline cardiomegaly, pulmonary edema, and bilateral effusions favoring cardiac decompensation/CHF versus fluid overload. 3. Incidental small hiatal hernia and fatty liver.
[2023-07-15] MEDS: ENOXAPARIN SODIUM SQ SCH (11:08)
[2023-07-15] MEDS: Effexor XR 75 MG PO SCH (11:08)
[2023-07-15] MEDS: Lasix 40 MG/4 ML IV SCH ×2 (11:08→18:32)
[2023-07-15] MEDS: SYNTHROID 50 MCG PO SCH (11:08)
[2023-07-15] MEDS: TYLENOL 325 MG PO PRN (13:14)
[2023-07-15] MEDS: Mucinex 600MG ER Tabs PO SCH (13:14)
[2023-07-15] MEDS ORDERED: Lasix 40 MG/4 ML IV SCH (22:00)
[2023-07-16 04:50] LABS: Absolute Neutrophil Ct (ANC) 4.11 x10^3/uL (1.4-6.9); BASOPHIL % 0.6 % (0.0-0.4); Basophil (Absolute #) 0.05 x10^3/uL (0-0.4); Eosinophil % 0.4 % (0.00-5.0); Eosinophil (Absolute #) 0.03 x10^3/uL (0-0.5); Hematocrit 43.6 % (35-47); Hemoglobin 14.1 g/dL (12.0-16.0); IMMATURE GRAN # 0.03 x10^3u/L (0.00-0.03); IMMATURE GRAN % 0.4 % (0.00-0.4); Lymphocyte (Absolute #) 3.18 x10^3/uL (1.0-4.6); Lymphocytes % 40.6 % (24.0-44.0); Mean Cell Volume 90.3 fL (78-100); Mean Corpuscular Hemoglobin 29.2 pg (26-32); Mean Corpuscular Hgb Concent. 32.3 g/dL (32-36); Mean Platelet Volume 11.9 fL (7.5-11.0); Monocyte (Absolute #) 0.44 x10^3/uL (0.0-1.3); Monocytes % 5.6 % (0.0-12.0); Neutrophil % 52.4 % (36.0-66.0); Platelet Count 206 x10^3/uL (150-450); Red Blood Count 4.83 x10^6/uL (4.1-5.4); Red Cell Distribution Width 13.4 % (11.5-14.0); White Blood Count 7.8 x10^3/uL (4.0-10.5)
[2023-07-16 07:23] LABS: ANION GAP 14.8 MEQ/L (5-15); BILIRUBIN,TOTAL 0.4 mg/dL (0.2-1.3); Calcium 9.3 mg/dL (8.4-10.2); Creatinine 1 1.19 mg/dL (0.52-1.04); EST GLOMERULAR FILTRATION RATE 53.7 ML/MIN; Potassium 3.6 mmol/L (3.5-5.1); Total Protein 6.9 g/dL (6.3-8.2)
--- NOTE | 2023-07-16 08:00 | ECHO ---
DATE OF PROCEDURE: 07/15/2023 PROCEDURE: Complete two-dimensional echocardiogram with color Doppler and Spectral analysis. INDICATION: New onset congestive heart failure and shortness of breath. DESCRIPTION OF FINDINGS: The left ventricle is borderline dilated. There is mild concentric hypertrophy. Left ventricular systolic function is severely reduced with ejection fraction of 10 to 15%. There is global severe hypokinesis. There is grade III-IV diastolic dysfunction. The right ventricle is normal size and normal systolic function. The left atrium is mildly dilated. The right atrium is normal size. Inferior vena cava is normal caliber with less than 50% respiratory variation suggestive of elevated central venous pressure. The aortic valve is trileaflet and it opens well. There is no aortic stenosis or aortic regurgitation. The mitral valve is morphologically normal. There is moderate mitral regurgitation. The tricuspid valve leaflets are thin and pliable. There is trivial tricuspid regurgitation. Unable to estimate right ventricular systolic pressure due to inadequate tricuspid regurgitant signal. The pulmonic valve is not well visualized. The aortic root is normal caliber. There is no pericardial effusion. IMPRESSION: 1) BORDERLINE DILATED LEFT VENTRICLE WITH MILD CONCENTRIC HYPERTROPHY. 2) SEVERELY REDUCED LEFT VENTRICULAR SYSTOLIC FUNCTION WITH EJECTION FRACTION OF 10 TO 15%. 3) GRADE III-IV DIASTOLIC DYSFUNCTION. 4) MODERATE MITRAL REGURGITATION. 5) TRACE TRICUSPID REGURGITATION. UNABLE TO ESTIMATE RIGHT VENTRICULAR SYSTOLIC PRESSURE DUE TO INADEQUATE TRICUSPID REGURGITANT SIGNAL. 6) DECREASED RESPIRATORY VARIATION OF THE IVC SUGGESTS ELEVATED CENTRAL VENOUS PRESSURE WITH ESTIMATED RIGHT ATRIAL PRESSURE OF 8 MM OF MERCURY. 7) NO PERICARDIAL EFFUSION.
--- NOTE | 2023-07-16 09:26 | PCM.DS ---
Discharge Summary Date of Admission: 07/14/23 23:49 Date of Discharge: 07/16/23 Admitting Physician: DENIS ROMERO MD Consults: Consults on Case 07/15/23 16:21 Consult Cardiology ROUTINE Primary Care Provider: FRANCOIS LYONS Allergies Allergies codeine Allergy (Verified 07/14/23 18:15) Hospital Summary - Hospital Course Hospital Course: is a 58 year old female who presented to ED 07/14/23 with shortness of breath and hypoxic respiratory failure, with clinical picture concerning for new onset CHF vs asthma. Pt denies acute chest pain, recent illness but has had progressive dyspnea at rest and with exertion. Given lasix in the ED with improvement in symptoms but remained hypoxic on room air when walking (88%) - and improved on nasal canula. No prior TTEs. No leg swelling. CT chest with no evidence for pulmonary embolism. However there is new borderline cardiomegaly with pulmonary edema. There is tiny bilateral effusions present. Favoring mild CHF. New small hiatal hernia. Dyspnea resolved, now on RA. Patient euvolemic. Discussed case with Dr. Joe Cole (patient's reinforcing iron worker helper) patient does have h/o pvc's for which she is asymptomatic and has not required treatment. Echo read showing EF of 10-15%. Further findings include 1) BORDERLINE DILATED LEFT VENTRICLE WITH MILD CONCENTRIC HYPERTROPHY. 2) SEVERELY REDUCED LEFT VENTRICULAR SYSTOLIC FUNCTION WITH EJECTION FRACTION OF 10 TO 15%. 3) GRADE III-IV DIASTOLIC DYSFUNCTION.4) MODERATE MITRAL REGURGITATION. 5) TRACE TRICUSPID REGURGITATION. UNABLE TO ESTIMATE RIGHT VENTRICULAR SYSTOLIC PRESSURE DUE TO INADEQUATE TRICUSPID REGURGITANT SIGNAL. 6) DECREASED RESPIRATORY VARIATION OF THE IVC SUGGESTS ELEVATED CENTRAL VENOUS PRESSURE WITH ESTIMATED RIGHT ATRIAL PRESSURE OF 8 MM OF MERCURY.7) NO PERICARDIAL EFFUSION. Dr. Cole has reviewed her case, recommends to start Entrestro 24/26 BID, Metoprolol 25mg daily, and spironolactone. Patient will need a life vest which Dr. Cole will set up for patient. She is cleared for discharge by cardiology, she will see Dr. Cole in the office today. Of note, TSH level low, synthroid decreased to 50mcg, patient to follow up with PCP. Discharge Note New Diagnosis: New onset CHF New Medications:Entrestro 24/26 BID, Metoprolol 25mg daily, and spironolactone - Synthroid changed to 50mcg Follow Up: Dr. Cole today Latest Assessment & Plan (1) Congestive heart failure Current Visit: Yes Status: Acute Assessment & Plan: -New onset, Discussed case with patient's reinforcing iron worker helper Dr. Joe Cole, plan for echo today and diuresis, will re-evaluate once results are finalized -CT chest showing no evidence for pulmonary embolism. However there is new borderline cardiomegaly with pulmonary edema There is tiny bilateral effusions present. Favoring mild CHF. New small hiatal hernia -Most recent echo 11/26/18 Findings: 1) Mildly reduced left ventricular systolic function with ejection fraction 45 to 50%. 2) Mild left ventricular hypertrophy. 3) Normal right ventricular systolic size and systolic function. 4) Borderline mitral valve prolapse with mild central mitral regurgitation. 5) Mild tricuspid regurgitation with right ventricular systolic pressure of 30 mm of Mercury. 6) Trace pulmonic regurgitation. 7) No pericardial effusion. -trops WNL -Optimize electrolytes with goal k>4, Mg>2 -BNP at 3440 -Echo pending -Supplemental oxygen with goal >92% -Lasix 40mg bid -Elevated HOB 30-45 degrees -Dry weight with daily weights -Tele -Strict I&O Code(s): I50.9 - HEART FAILURE, UNSPECIFIED (2) CROW (acute kidney injury) Current Visit: Yes Status: Acute Assessment & Plan: -creat baseline around 0.82, at 1.33 on admission, improving at 1.16 -Med list reviewed for offending agents -Avoid BEREKET/ARBS/NSAIDs Code(s): N17.9 - ACUTE KIDNEY FAILURE, UNSPECIFIED (3) Hypoxia Current Visit: Yes Status: Acute Assessment & Plan: -Most likely secondary to new onset CHF -now at RA VTE: lovenox Dispo: 1-2 days Full code Code(s): R09.02 - HYPOXEMIA (4) Hypothyroid Current Visit: Yes Status: Acute Assessment & Plan: -TSH level elevated, will reduce dose of synthroid to 50mcg, advised recheck with PCP Code(s): E03.9 - HYPOTHYROIDISM, UNSPECIFIED I spent 35 minutes [id number] with the patient on the day of discharge performing discharge exam, discussing hospital stay and discharge instructions with patient and caregivers, preparation of discharge records, prescriptions & referral forms and addressing any questions/concerns the patient had as documented above. - Vitals & Intake/Output Vital Signs: Vital Signs Temperature 97.5 F 07/16/23 06:55 Pulse Rate 94 H 07/16/23 06:55 Respiratory Rate 16 07/16/23 06:55 Blood Pressure 162/65 07/16/23 06:55 O2 Sat by Pulse Oximetry 90 L 07/16/23 06:55 Intake & Output: Intake & Output 07/13/23 07/14/23 07/15/23 07/16/23 11:59 11:59 11:59 11:59 Intake Total 480 1480 Output Total 400 3550 Balance 80 -2070 Weight 78.9 kg - Lab Result Diagrams: 07/16/23 04:30 07/16/23 04:44 Lab Results-Last 24 Hrs: Lab Results-Last 24 Hours 07/15/23 07/15/23 07/16/23 Range/Units 04:42 04:42 04:30 WBC 7.8 (4.0-10.5) x10^3/uL RBC 4.83 (4.1-5.4) x10^6/uL Hgb 14.1 (12.0-16.0) g/dL Hct 43.6 (35-47) % MCV 90.3 (78-100) fL MCH 29.2 (26-32) pg MCHC 32.3 (32-36) g/dL RDW 13.4 (11.5-14.0) % Plt Count 206 (150-450) x10^3/uL MPV 11.9 H (7.5-11.0) fL Gran % 52.4 (36.0-66.0) % Immature Gran % (Auto) 0.4 (0.00-0.4) % Nucleat RBC Rel Count 0.0 (0.00-0.1) % Eos # (Auto) 0.03 (0-0.5) x10^3/uL Immature Gran # (Auto) 0.03 (0.00-0.03) x10^3u/L Absolute Lymphs (auto) 3.18 (1.0-4.6) x10^3/uL Absolute Monos (auto) 0.44 (0.0-1.3) x10^3/uL Absolute Nucleated RBC 0.00 (0.00-0.01) x10^3u/L Lymphocytes % 40.6 (24.0-44.0) % Monocytes % 5.6 (0.0-12.0) % Eosinophils % 0.4 (0.00-5.0) % Basophils % 0.6 (0.0-0.4) % Absolute Granulocytes 4.11 (1.4-6.9) x10^3/uL Basophils # 0.05 (0-0.4) x10^3/uL Sodium (135-145) mmol/L Potassium (3.5-5.1) mmol/L Chloride (98-107) mmol/L Carbon Dioxide (22-30) mmol/L Anion Gap (5-15) MEQ/L BUN (7-17) mg/dL Creatinine (0.52-1.04) mg/dL Estimated GFR ML/MIN Glucose (74-106) mg/dL Hemoglobin A1c 5.46 (4.5-6.0) % Calcium (8.4-10.2) mg/dL Magnesium 2.0 (1.6-2.3) mg/dL Total Bilirubin (0.2-1.3) mg/dL AST (14-36) U/L ALT (0-35) U/L Alkaline Phosphatase (38-126) U/L Serum Total Protein (6.3-8.2) g/dL Albumin (3.5-5.0) g/dL 07/16/23 07/16/23 Range/Units 04:30 04:44 WBC (4.0-10.5) x10^3/uL RBC (4.1-5.4) x10^6/uL Hgb (12.0-16.0) g/dL Hct (35-47) % MCV (78-100) fL MCH (26-32) pg MCHC (32-36) g/dL RDW (11.5-14.0) % Plt Count (150-450) x10^3/uL MPV (7.5-11.0) fL Gran % (36.0-66.0) % Immature Gran % (Auto) (0.00-0.4) % Nucleat RBC Rel Count (0.00-0.1) % Eos # (Auto) (0-0.5) x10^3/uL Immature Gran # (Auto) (0.00-0.03) x10^3u/L Absolute Lymphs (auto) (1.0-4.6) x10^3/uL Absolute Monos (auto) (0.0-1.3) x10^3/uL Absolute Nucleated RBC (0.00-0.01) x10^3u/L Lymphocytes % (24.0-44.0) % Monocytes % (0.0-12.0) % Eosinophils % (0.00-5.0) % Basophils % (0.0-0.4) % Absolute Granulocytes (1.4-6.9) x10^3/uL Basophils # (0-0.4) x10^3/uL Sodium 141 (135-145) mmol/L Potassium 3.6 (3.5-5.1) mmol/L Chloride 106 (98-107) mmol/L Carbon Dioxide 24 (22-30) mmol/L Anion Gap 14.8 (5-15) MEQ/L BUN 20 H (7-17) mg/dL Creatinine 1.19 H (0.52-1.04) mg/dL Estimated GFR 53.7 ML/MIN Glucose 93 (74-106) mg/dL Hemoglobin A1c (4.5-6.0) % Calcium 9.3 (8.4-10.2) mg/dL Magnesium 2.1 (1.6-2.3) mg/dL Total Bilirubin 0.40 (0.2-1.3) mg/dL AST 29 (14-36) U/L ALT 53 H (0-35) U/L Alkaline Phosphatase 71 (38-126) U/L Serum Total Protein 6.9 (6.3-8.2) g/dL Albumin 4.0 (3.5-5.0) g/dL - Radiology Exams Ordered Rad Exams-Entire Visit: Radiology Procedures Category Date Time Status CHEST 1 VIEW (PORTABLE) Stat Exams 07/14/23 17:55 Completed CHEST WITH CONTRAST [CT] Stat Exams 07/14/23 19:09 Completed ECHO W/2D AND DOPPLER [US] Stat Exams 07/15/23 00:00 Draft - Procedures and Test Procedures and Tests throughout Hospitalization: Therapy Orders & Screens 07/14/23 18:10 Respiratory Therapy Assessment DAILY Comment: 07/15/23 00:00 EKG REPEAT IN AM Comment: Oxygen Nasal Cannula 2 lpm Comment: Respiratory Therapy Consult ONCE Comment: Reason For Exam: 07/15/23 01:04 RT Screen per Nursing Assess ONCE Comment: Protocol Order Physician Instructions: Greater than 3 points order RT Admission Screen Reason For Exam: Triggered on Admission Diagnosis: shortness of breath, hyoxia, concern for CHF Diagnosis: shortness of breath, hyoxia, concern for CHF Pneumonia: No Home O2: No Asthma: Yes CHF: Yes Home CPAP/BIPAP: No Home Nebs/MDI: Yes Total Points: 12 07/16/23 08:57 EKG ROUTINE Comment: Diagnosis: shortness of breath, hyoxia, concern for CHF EKG Reason: Other Discharge Exam General Appearance: no apparent distress Neurologic Exam: alert, oriented x 3, cooperative Eye Exam: PERRL Ears, Nose, Throat Exam: normal ENT inspection Neck Exam: normal inspection Respiratory Exam: normal breath sounds, lungs clear Cardiovascular Exam: regular rate/rhythm, tachycardia Gastrointestinal/Abdomen Exam: soft, normal bowel sounds Pelvic Exam: deferred Rectal Exam: deferred Back Exam: normal inspection Extremity Exam: normal inspection Skin Exam: normal color Final Diagnosis/Problem List - Final Discharge Diagnosis/Problem (1) Congestive heart failure Current Visit: Yes Status: Acute Code(s): I50.9 - HEART FAILURE, UNSPECIFIED (2) CROW (acute kidney injury) Current Visit: Yes Status: Acute Code(s): N17.9 - ACUTE KIDNEY FAILURE, UNSPECIFIED (3) Hypoxia Current Visit: Yes Status: Acute Code(s): R09.02 - HYPOXEMIA (4) Hypothyroid Current Visit: Yes Status: Acute Code(s): E03.9 - HYPOTHYROIDISM, UNSPECIFIED - Discharge Disposition: Home, Self-Care Condition: Fair Prescriptions: New Spironolactone 25 mg [Aldactone 25 MG] 12.5 mg PO DAILY 30 Days #15 tablet Sacubitril/Valsartan [Entresto 49 mg-51 mg Tablet] 0.5 tablet PO BID 30 Days #15 tablet Levothyroxine Sodium 50 Mcg [Synthroid 50 Mcg] 50 mcg PO DAILY@0700 30 Days #30 tablet Metoprolol Succinate 25 mg Xl* [Toprol-Xl 25MG Tablets] 25 mg PO DAILY 30 Days #30 tablet Continue Venlafaxine HCl ER 75 mg [Effexor XR 75 MG] 75 mg PO DAILY Discontinued Levothyroxine Sodium 75 Mcg [Synthroid 75 Mcg] 75 mcg PO DAILY Follow up with: FRANCOIS LYONS [Primary Care Provider] - 07/17/23 11:00 am JUSTIN COLE MD [NON-STAFF PHY W/O PRIVILEGES] - 07/28/23 10:00 am (Patient to see Dr. Cole today 07/16/23, office will work her in)
[2023-07-16] MEDS: Toprol-Xl 25MG Tablets PO SCH (09:57)
[2023-07-16] MEDS: ENTRESTO 49 MG-51 MG TABLET PO SCH (09:57)
[2023-07-16] MEDS: Aldactone 25 MG PO SCH (09:58)
[2023-07-16 11:03] VITALS: BP 122/86; PULSE 119; RESP 19; TEMP 97.6; O2SAT 93
== END 2023-07-16 11:11 | disposition home or self-care (01) ==
LOC: ED 17:53 → MED SURG 23:49
PROVIDERS: ADMIT Student in an Organized Health Care Education/Training Program; ATTEND Student in an Organized Health Care Education/Training Program
DX: I50.9 Heart failure, unspecified (principal); N17.9 Acute kidney failure, unspecified; R09.02 Hypoxemia; E03.9 Hypothyroidism, unspecified; K44.9 Diaphragmatic hernia without obstruction or gangrene; Z79.899 Other long term (current) drug therapy; Z20.828 Contact with and (suspected) exposure to other viral communicable diseases
CPT/HCPCS: 0241U; 36000; 36415; 71045; 71260; 80053; 83036; 83735; 83880; 84439; 84443; 84484; 85025; 85379; 93005; 93041; 93306; 94640; 94760; 96360; 96374; 99285; 99291; G0378; J1650; J1940; J2930; J7609; Q3014; A9270-GY

== ENCOUNTER 2023-08-04 20:49 | Emergency (ER) | payer BC ==
[2023-08-04] MEDS ORDERED: Cyclobenzaprine 10 MG PO ONE (20:50)
[2023-08-04 21:19] VITALS: TEMP 98.8
[2023-08-04 22:02] LABS: Appearance Cloudy (Clear); Bilirubin Negative (Negative); Blood Negative (Negative); Epithelial Cells Moderate /HPF (None Seen); Glucose, Urine Negative (Negative); Ketones Trace (Negative); Leukocyte Esterase Negative (Negative); Nitrite Negative (Negative); Protein,Urine Dip Trace (Negative); RBC 0-2 /HPF (0-5); Specific Gravity >=1.030 (1.005-1.030)
--- NOTE | 2023-08-04 22:02 | ERPHSYRPT ---
- History of Present Illness Time Seen by Provider: 08/04/23 21:50 Source: patient Exam Limitations: no limitations Patient Subjective Stated Complaint: left back pain Triage Nursing Assessment: pt ambulated into ER in pain to her back, spouse at b trudiide. Pt alert and oriented x4. Pt c/o left sided mid to lower back pain which started yesterday morning and has gotten significantly worse this evening. Pt states the pain is achy, but becomes sharp whenever a "spasm" occurs. Pt denies any injury to the area. Pt is currently wearing a life vest due to fluid overload on the heart and has an EF of 10-15%. Lungs clear, heart tones reg/tachy, no edema noted. Physician History: 58yo f presents to ED via private vehicle for 2d left sided low back pain. Pt states the pain started yesterday when she woke up from sleep, has progressed since. Pt reports recent hx of passed kidney stone on right side. Pt denies any recent trauma or injury to the low back. Pt states the pain feels like a spasm, states she is unable to find a comfortable position for long, changes position frequently during exam. Pt was recently diagnosed w/ significant CHF, is wearing life vest at time of exam. Pt currently denies cp, soa, n/v/d, fevers. Pt does report some urinary frequency but denies dysuria. Timing/Duration: day(s) (2), intermittent, worse Allergies/Adverse Reactions: codeine Allergy (Verified 08/04/23 21:31) Vomiting Home Medications: Venlafaxine HCl ER 75 mg [Effexor XR 75 MG] 75 mg PO DAILY 07/14/23 [History] Furosemide [Lasix] 20 mg PO DAILY PRN PRN 08/04/23 [History] Levothyroxine Sodium 50 Mcg [Synthroid 50 Mcg] 50 mcg PO DAILY 08/04/23 [History] Metoprolol Succinate 25 mg Xl* [Toprol-Xl 25MG Tablets] 50 mg PO HS 08/04/23 [History] Sacubitril/Valsartan [Entresto 49 mg-51 mg Tablet] 0.5 tablet PO BID 08/04/23 [History] Spironolactone 25 mg [Aldactone 25 MG] 12.5 mg PO DAILY 08/04/23 [History] Hx Tetanus, Diphtheria Vaccination/Date Given: No Hx Influenza Vaccination/Date Given: Yes Hx Pneumococcal Vaccination/Date Given: No Travel Risk - International Travel Have you traveled outside of the country in past 3 weeks: No - Emerging Infectious Disease Are you exhibiting symptoms associated with any current EIDs: No - Review of Systems Constitutional: No Symptoms, No Fever, No Chills, No Fatigue Respiratory: No Symptoms Cardiac: No Symptoms Abdominal/Gastrointestinal: No Abdominal Pain, No Nausea, No Vomiting, No Diarrhea Genitourinary Symptoms: Frequency, No Dysuria, No Hematuria, No Incontinence, No Flank Pain Musculoskeletal: Back Pain, Myalgias Skin: No Symptoms Neurological: No Symptoms - Past Medical History Pertinent Past Medical History: Yes Cardiac History: Arrhythmia, Congestive Heart Failure Respiratory History: Asthma, Bronchitis, CHF, Pneumonia Endocrine Medical History: Hypothyroidism GI Medical History: Gallbladder Disease Other Medical History: hx of PVC's, fluid around heart EF 10-15%, Left BBB, Life Vest - Past Surgical History Past Surgical History: Yes Neuro Surgical History: No Pertinent History Cardiac: Cardiac Catheterization Respiratory: No Pertinent History Gastrointestinal: Cholecystectomy Female Surgical History: Section, Other Other Surgical History: RSO w teratoma removal - Social History Smoking Status: Never smoker Exposure to second hand smoke: Yes Drug Use: none Patient Lives Alone: No - Nursing Vital Signs Nursing Vital Signs: Initial Vital Signs Temperature 98.8 F 08/04/23 21:18 Pulse Rate 104 H 08/04/23 21:18 Respiratory Rate 18 08/04/23 21:18 Blood Pressure 126/71 08/04/23 21:18 O2 Sat by Pulse Oximetry 94 L 08/04/23 21:18 Pain Scale Pain Intensity [Left Back] 5 Pain Intensity 10 - Physical Exam General Appearance: no apparent distress, alert Respiratory Exam: normal breath sounds, lungs clear, airway intact, No chest tenderness, No respiratory distress Cardiovascular Exam: regular rate/rhythm, normal heart sounds Gastrointestinal Exam: soft, normal bowel sounds, No tenderness, No distention Back Exam: muscle spasm, point tenderness (left side lumbar paraspinal musculature hypertonic, TTP, muscle spasms occurring during exam), No vertebral tenderness Neurologic Exam: alert, oriented x 3, cooperative, normal mood/affect, nml cerebellar function, sensation nml, No motor deficits, No sensory deficit, No motor weakness SpO2 Interpretation: normal SpO2: 94 O2 Delivery: Room Air Ordered Tests: Active Orders 24 hr Category Date Time Status ABDOMEN AND PELVIS W/0 CONTRAS [CT] Stat Exams 08/04/23 21:55 Completed RECONSTRUCTION [CT] Stat Exams 08/04/23 23:11 Completed CBC W DIFF Stat Lab 08/04/23 22:00 Completed CMP Stat Lab 08/04/23 22:00 Completed CULTURE,URINE Stat Lab 08/04/23 21:42 Received UA W/RFX UR CULTURE Stat Lab 08/04/23 21:42 Completed Medication Summary Discontinued Medications Generic Name Dose Route Start Last Admin Trade Name Calvinq PRN Reason Stop Dose Admin Cyclobenzaprine HCl 10 mg 08/04/23 21:56 08/04/23 22:13 Cyclobenzaprine Hcl 10 Mg Tablet PO 08/04/23 21:57 10 mg STAT ONE Administration Cyclobenzaprine HCl Confirm 08/04/23 22:12 Cyclobenzaprine Hcl 10 Mg Tablet Administered 08/04/23 22:13 Dose 10 mg .ROUTE .STK-MED ONE Ceftriaxone Sodium 1 gm in 100 mls @ 200 mls/hr 08/04/23 23:59 08/05/23 00:51 Rocephin 1 Gm / 100 Ml Nacl IV 08/05/23 00:28 200 mls/hr STAT ONE 200 mls/hr Administration Ceftriaxone Sodium Confirm 08/05/23 00:44 Rocephin 1 Gm / 100 Ml Nacl Administered 08/05/23 00:45 Dose 1 gm in 100 mls @ ud IV .STK-MED ONE Ketorolac Tromethamine 30 mg 08/04/23 23:57 08/05/23 00:51 Ketorolac Tromethamine 30 Mg/Ml Inj IV 08/04/23 23:58 30 mg STAT ONE Administration Ketorolac Tromethamine Confirm 08/05/23 00:44 Ketorolac Tromethamine 30 Mg/Ml Inj Administered 08/05/23 00:45 Dose 30 mg .ROUTE .STK-MED ONE Lab/Rad Data: Laboratory Result Diagrams 08/04/23 22:00 08/04/23 22:00 Laboratory Results 08/04/23 08/04/23 08/04/23 Range/Units 22:00 22:00 21:42 WBC 8.4 (4.0-10.5) x10^3/uL RBC 4.51 (4.1-5.4) x10^6/uL Hgb 13.1 (12.0-16.0) g/dL Hct 39.5 (35-47) % MCV 87.6 (78-100) fL MCH 29.0 (26-32) pg MCHC 33.2 (32-36) g/dL RDW 13.2 (11.5-14.0) % Plt Count 133 L (150-450) x10^3/uL MPV 12.5 H (7.5-11.0) fL Gran % 72.6 H (36.0-66.0) % Immature Gran % (Auto) 0.4 (0.00-0.4) % Nucleat RBC Rel Count 0.0 (0.00-0.1) % Eos # (Auto) 0.07 (0-0.5) x10^3/uL Immature Gran # (Auto) 0.03 (0.00-0.03) x10^3u/L Absolute Lymphs (auto) 1.53 (1.0-4.6) x10^3/uL Absolute Monos (auto) 0.62 (0.0-1.3) x10^3/uL Absolute Nucleated RBC 0.00 (0.00-0.01) x10^3u/L Lymphocytes % 18.2 L (24.0-44.0) % Monocytes % 7.4 (0.0-12.0) % Eosinophils % 0.8 (0.00-5.0) % Basophils % 0.6 (0.0-0.4) % Absolute Granulocytes 6.09 (1.4-6.9) x10^3/uL Basophils # 0.05 (0-0.4) x10^3/uL Sodium 138 (135-145) mmol/L Potassium 3.8 (3.5-5.1) mmol/L Chloride 106 (98-107) mmol/L Carbon Dioxide 24 (22-30) mmol/L Anion Gap 12.2 (5-15) MEQ/L BUN 23 H (7-17) mg/dL Creatinine 1.20 H (0.52-1.04) mg/dL Estimated GFR 53.1 ML/MIN Glucose 115 H (74-106) mg/dL Calcium 9.4 (8.4-10.2) mg/dL Total Bilirubin 0.30 (0.2-1.3) mg/dL AST 27 (14-36) U/L ALT 25 (0-35) U/L Alkaline Phosphatase 59 (38-126) U/L Serum Total Protein 6.7 (6.3-8.2) g/dL Albumin 4.0 (3.5-5.0) g/dL Urine Color Yellow (Yellow) Urine Appearance Cloudy A (Clear) Urine pH 5.0 (4.6-8.0) Ur Specific [employer] >=1.030 A (1.005-1.030) Urine Protein Trace A (Negative) Urine Glucose (UA) Negative (Negative) mg/dL Urine Ketones Trace A (Negative) Urine Blood Negative (Negative) Urine Nitrite Negative (Negative) Urine Bilirubin Negative (Negative) Urine Urobilinogen 1.0 A (0.2) mg/dL Ur Leukocyte Esterase Negative (Negative) U Hyaline Cast (Auto) None Seen (0-2) /LPF Urine Microscopic RBC 0-2 (0-5) /HPF Urine Microscopic WBC 6-10 A (0-5) /HPF Ur Epithelial Cells Moderate A (None Seen) /HPF Calcium Oxalate Crystal 3-5 A (None Seen) /HPF Urine Bacteria Moderate A (None Seen) /HPF Urine Culture Reflexed YES (NO) - Progress Progress: improved Progress Note: 08/05/23 00:34 CT abd/pelvis 1. No significant acute abnormality was detected in the CT abdomen and pelvis, within the limitations of the plain study 2. Uncomplicated colonic diverticulosis 3. Hepatic steatosis. 08/05/23 01:[address] enhancement showed 1. Mild dextroscoliosis of lumbar spine 2. Disc bulges at L4-L5 and L5-S1 levels as described above. MR is recommended for better evaluation of discogenic disease if clinically warranted 3. Bilateral mild chronic sacroiliitis pain/spasms likely 2/2 muscle strain vs bulging disc plan to discharge home w/ close PCP follow up - Dr Castañeda will provide 2 10mg cyclobenzaprine at time of dc rest as much as possible, limit lifting/bending at the waste Ice/heat, tylenol, muscle relaxer for pain relief will likely need MRI for further evaluation of bulging disc return to ED if: develop numbness/tingling in legs, develop numbness in groin region, lose control of bowel/bladder function, pain becomes unbearable Medical Desision Making - Diagnostic Testing Diagnostic test were ordered, analyzed, and reviewed by me: Yes Radiological Interpretation: Reviewed by me, Teleradiologist Report - Risk of complications Low Risk: Low risk of morbidity from additional dx testing or treatment - Departure Departure Disposition: Home Clinical Impression: Bulging disc, Lumbar back pain, Back muscle spasm Condition: Stable Critical Care Time: No Referrals: FRANCOIS CASTAÑEDA [Primary Care Provider] - Follow up/PCP as directed Additional Instructions: pain/spasms likely 2/2 muscle strain vs bulging disc plan to discharge home w/ close PCP follow up - Dr Castañeda will provide 2 10mg cyclobenzaprine at time of dc rest as much as possible, limit lifting/bending at the waste Ice/heat, tylenol, muscle relaxer for pain relief will likely need MRI for further evaluation of bulging disc return to ED if: develop numbness/tingling in legs, develop numbness in groin region, lose control of bowel/bladder function, pain becomes unbearable
[2023-08-04 22:03] LABS: Bacteria Moderate /HPF (None Seen); Hyaline Casts None Seen /LPF (0-2)
[2023-08-04 22:04] LABS: ADD URINE CULTURE? YES (NO)
[2023-08-04 22:08] LABS: Absolute Neutrophil Ct (ANC) 6.09 x10^3/uL (1.4-6.9); BASOPHIL % 0.6 % (0.0-0.4); Basophil (Absolute #) 0.05 x10^3/uL (0-0.4); Eosinophil % 0.8 % (0.00-5.0); Eosinophil (Absolute #) 0.07 x10^3/uL (0-0.5); Hematocrit 39.5 % (35-47); Hemoglobin 13.1 g/dL (12.0-16.0); IMMATURE GRAN # 0.03 x10^3u/L (0.00-0.03); IMMATURE GRAN % 0.4 % (0.00-0.4); Lymphocyte (Absolute #) 1.53 x10^3/uL (1.0-4.6); Lymphocytes % 18.2 % (24.0-44.0); Mean Cell Volume 87.6 fL (78-100); Mean Corpuscular Hgb Concent. 33.2 g/dL (32-36); Mean Platelet Volume 12.5 fL (7.5-11.0); Monocyte (Absolute #) 0.62 x10^3/uL (0.0-1.3); Monocytes % 7.4 % (0.0-12.0); Neutrophil % 72.6 % (36.0-66.0); Platelet Count 133 x10^3/uL (150-450); Red Blood Count 4.51 x10^6/uL (4.1-5.4); Red Cell Distribution Width 13.2 % (11.5-14.0); White Blood Count 8.4 x10^3/uL (4.0-10.5)
[2023-08-04] MEDS ORDERED: Cyclobenzaprine 10 MG ONE (22:12)
[2023-08-04] MEDS: Cyclobenzaprine 10 MG PO ONE (22:13)
[2023-08-04 22:22] LABS: ANION GAP 12.2 MEQ/L (5-15); BILIRUBIN,TOTAL 0.3 mg/dL (0.2-1.3); Calcium 9.4 mg/dL (8.4-10.2); Creatinine 1 1.2 mg/dL (0.52-1.04); EST GLOMERULAR FILTRATION RATE 53.1 ML/MIN; Potassium 3.8 mmol/L (3.5-5.1); Total Protein 6.7 g/dL (6.3-8.2)
--- NOTE | 2023-08-05 00:29 | XRAY ---
CLINICAL HISTORY: left low back/flank pain COMPARISON: None. TECHNIQUE: CT scan of the abdomen and pelvis was performed without IV contrast. Coronal and sagittal reconstructive images were also obtained. One of the following dose reduction techniques were utilized for this exam: Automated exposure control, adjustment of the mA and/or kV according to patient size, and use of iterative reconstruction. FINDINGS: Sections of the lower thorax show basal atelectatic changes, predominant on the left side. Left bailar nodular atelectatic band is noted Abdomen: The liver is of average size, however, it shows fatty infiltration. The intrahepatic biliary radicals and the bile ducts are normal. The gallbladder is surgically removed. The spleen, pancreas, and adrenal glands are unremarkable. The kidneys are normal in size and shape. No calculi or hydronephrosis. Uncomplicated colonic diverticulosis noted. The appendix appears unremarkable. The ascending colon, the transverse colon, the descending colon, visualized small bowel loops are unremarkable. There is no evidence of significant enlargement of the mesenteric or retroperitoneal lymph nodes. Pelvis: The urinary bladder is unremarkable. The uterus and adnexa appear unremarkable. No evidence of pelvic lymphadenopathy. No definite bony abnormalities could be depicted. IMPRESSION: 1. No significant acute abnormality was detected in the CT abdomen and pelvis, within the limitations of the plain study 2. Uncomplicated colonic diverticulosis 3. Hepatic steatosis. Electronically Signed by: Henrik Mina MD. (08/05/2023 00:26:07 EDT)
--- NOTE | 2023-08-05 00:39 | XRAY ---
CLINICAL HISTORY: LEFT LOW BACK PAIN, PAIN THORACO KATHRYN COMPARISON: None TECHNIQUE: CT scan of the lumbar spine was done with reformatted axial, coronal, and sagittal images. One of the following dose reduction techniques were utilized for this exam: Automated exposure control, adjustment of the mA and/or kV according to patient size, and use of iterative reconstruction. FINDINGS: Mild dextroscoliosis of the lumbar spine was noted. Preserved physiological lumbar lordosis. Normal vertebral bodies height and alignment. Intact vertebral bodies and neural arches. No definite fractures could be detected. Segmental disc analysis level by level: L1- L2: There is no significant disc herniation or neural foraminal narrowing visualized. Central canal is unremarkable. No sign of lateral recess stenosis. Nerve roots are normal. L2- L3: There is no significant disc herniation or neural foraminal narrowing visualized. Central canal is unremarkable. No sign of lateral recess stenosis. Nerve roots are normal. L3- L4: There is no significant disc herniation or neural foraminal narrowing visualized. Central canal is unremarkable. No sign of lateral recess stenosis. Nerve roots are normal. L4- L5: There is disc bulge resulting in effacement over ventral thecal sac and mild narrowing of neural foramina. L5- S1: There is disc bulge resulting in effacement of ventral thecal sac and mild narrowing of bilateral lateral recesses and neural foramina, accentuated by mild facetal arthropathy. No retro paraspinal soft tissue masses. No developmental canal stenosis. Bilateral mild chronic sacroiliitis noted. IMPRESSION: 1. Mild dextroscoliosis of lumbar spine 2. Disc bulges at L4-L5 and L5-S1 levels as described above. MR is recommended for better evaluation of discogenic disease if clinically warranted 3. Bilateral mild chronic sacroiliitis Electronically Signed by: Henrik Mina MD. (08/05/2023 00:35:27 EDT)
[2023-08-05] MEDS ORDERED: ROCEPHIN 1 GM / 100 ML NaCl 1 GM/100 ML IVPB IV ONE (00:44)
[2023-08-05] MEDS ORDERED: TORAdol 30 mg Injection ONE (00:44)
[2023-08-05] MEDS: TORAdol 30 mg Injection IV ONE (00:51)
[2023-08-05] MEDS: ROCEPHIN 1 GM / 100 ML NaCl 1 GM/100 ML IVPB IV ONE (00:51)
[2023-08-05 02:03] VITALS: BP 97/67; PULSE 100; RESP 17; O2SAT 95
[2023-08-05] MEDS ORDERED: Cyclobenzaprine 10 MG ONE (02:07)
[2023-08-05] MEDS: Cyclobenzaprine 10 MG PO ONE (02:11)
== END 2023-08-05 02:10 | disposition home or self-care (01) ==
LOC: ED 20:49
DX: M51.37 Other intervertebral disc degeneration, lumbosacral region (principal); M54.50 Low back pain, unspecified; M62.830 Muscle spasm of back; I50.9 Heart failure, unspecified; Z79.899 Other long term (current) drug therapy
CPT/HCPCS: 36000; 36415; 74176; 76376; 80053; 81001; 85025; 87086; 96374; 99284; J0696; J1885; A9270-GY